=== PATIENT | female | born 1985 | race Caucasian/White ===

== ENCOUNTER 2016-10-27 18:49 | Emergency (ER) | payer OTHER ==
--- NOTE | ~2016-10-27 | CR63 ---
[facility] A Service [facility] RADIOLOGY TEXT RESULTS PATIENT: SONJA MOREL LOCATION: SED : 87 UNIT #: [id number] AGE: [address]: Kathleen Narayan APRN SEX: F ORDER DR: [id number] [address] [address] [id number] E MR#: [id number] Acc #: [id number] NAME: SONJA MOREL : 1985 SEX: F STUDY DATE/TIME: 10/27/2016 18:53 UNIT: SED ROOM: STUDY DESCRIPTION: CR Chest 2 View Attending Physician: Kathleen Narayan A.P.R.N. Ordering Physician: Kathleen Christianson A.P.R.N. Primary Care Physician: Primary Care Physician No MEDICAL IMAGING REPORT This report is preliminary unless electronic signature is present. EXAM Two-view chest, 10/27/2016 INDICATION 31-year-old female with wheezing, cough, congestion, bronchitis since Wednesday. Symptoms a week. Patient has been [facility] at the [facility]. No known injury. TECHNIQUE 2-view chest. No comparisons. FINDINGS Cardiac silhouette is unremarkable. The vascularity is normal and the lungs are clear. No pneumothorax or effusion. IMPRESSION Negative chest. We have no comparisons. Dictated by... Jim Jules M.D. THIS IS AN ELECTRONICALLY VERIFIED REPORT Jim Jules M.D. at 10/28/2016 10:34 AM JEAN PAUL/kang TD: 10/27/2016 22:55 JOB #: [id number] MEDICAL IMAGING REPORT [facility] A Service of [facility] RADIOLOGY TEXT RESULTS PATIENT: SONJA MOREL LOCATION: SED : [birth year] UNIT #: [id number] AGE: [address]: Kathleen Narayan APRN SEX: F ORDER DR: Page 1 of 1
== END 2016-10-27 20:07 | disposition home or self-care (01) ==
LOC: SED 18:49
DX: J20.9 Acute bronchitis, unspecified (principal); J01.90 Acute sinusitis, unspecified; F17.210 Nicotine dependence, cigarettes, uncomplicated
CPT/HCPCS: 71020; 99283

== ENCOUNTER 2017-03-08 09:39 | Emergency (ER) | payer OTHER | END 2017-03-08 10:05 | disposition home or self-care (01) | LOC: SED 09:39 | DX: K08.89 Other specified disorders of teeth and supporting structures (principal); F17.200 Nicotine dependence, unspecified, uncomplicated | CPT/HCPCS: 99282 ==